=== PATIENT | male | born 1960 | race Caucasian/White ===

== ENCOUNTER 2019-09-02 15:03 | Inpatient (IN) | payer BC ==
[~2019-09-02] VITALS: Ht 160 cm; Wt 69.1 kg
[~2019-09-02 15:03] MED LIST: ASPIR 8181 MG PO; CELEBREX200 MG PO; CYMBALTA30 MG PO; DIOVAN160 MG PO; HYDROCODON-ACE1 EA12 PO; LEVOTHYROXINE100 MCG PO; LORZONE750 MG PO; RANITIDINE HCL300 MG PO; [UNRECOGNIZED DRUG - REMARK]
[2019-09-02] MEDS ORDERED: SODIUM CHLORIDE 0.9% 1000ML 1,000 ML IV ONE ×2 (15:15→16:30)
[2019-09-02] MEDS ORDERED: THIAMINE HCL INJ 100 MG/ML 2ML VIAL IV ONE (15:15)
[2019-09-02 15:53] LABS: BASOPHILS % 0.2 % (0.0-1.0); EOSINOPHILS # (AUTO) 0.4 (0.0-0.4); HEMATOCRIT 38.8 % (38.2-49.6); HEMOGLOBIN 13.6 g/dL (14.0-18.0); LYMPHOCYTES # (AUTO) 1.7 (1.0-3.2); LYMPHOCYTES % 13.8 % (18.0-39.1); MEAN CORPUSCULAR HEMOGLOBIN 33.6 pg (28-32); MEAN CORPUSCULAR HGB CONC 35.1 g/dL (31-35); MEAN CORPUSCULAR VOLUME 95.8 fL (81-99); MONOCYTES # (AUTO) 1.3 (0.2-0.8); MONOCYTES % 10.3 % (4.4-11.3); NEUTROPHILS # (AUTO) 8.7 (2.1-6.9); NEUTROPHILS % 72.1 % (38.7-80.0); PLATELET COUNT 540 x10e3/uL (140-360); RED BLOOD COUNT 4.05 x10e6/uL (4.3-5.7); RED CELL DISTRIBUTION WIDTH 12.7 % (11.7-14.4)
[2019-09-02 15:55] LABS: CLARITY,URINE CLEAR (CLEAR); COLOR,URINE YELLOW (YELLOW); KETONES,URINE NEGATIVE (NEGATIVE); LEUKOCYTE ESTERASE ,URINE NEGATIVE (NEGATIVE); NITRITE,URINE NEGATIVE (NEGATIVE); PROTEIN,URINE DIPSTICK 2+ (NEGATIVE)
[2019-09-02 15:56] LABS: BILIRUBIN,URINE 1+ (NEGATIVE); URINE UROBILINOGEN 0.2 mg/dL (0.2 - 1)
[2019-09-02 15:59] LABS: AMPHETAMINES SCREEN,URINE NEGATIVE (NEGATIVE); BENZODIAZEPINES SCREEN,URINE POSITIVE (NEGATIVE); PHENCYCLIDINE SCREEN,URINE NEGATIVE (NEGATIVE)
[2019-09-02 16:07] LABS: AMORPHOUS SEDIMENT,URINE MODERATE (FEW); BACTERIA,URINE MODERATE /HPF; EPITHELIAL CELLS,URINE FEW /LPF; WBC,URINE (MAN) 0-5 /HPF (0-5)
[2019-09-02 16:14] LABS: ALBUMIN 2.8 g/dL (3.5-5.0); ALBUMIN/GLOBULIN RATIO 0.6 (0.8-2.0); ANION GAP 12.3 mmol/L (8-16); CREATININE, SERUM 2.46 mg/dL (0.72-1.25); MAGNESIUM 1.8 MG/DL (1.3-2.1); PHOSPHORUS 2.9 MG/DL (2.3-4.7); POTASSIUM 4.3 mmol/L (3.5-5.1)
[2019-09-02 16:22] LABS: CALCIUM 16.7 mg/dL (8.4-10.2)
[2019-09-02] MEDS ORDERED: NALOXONE HCL INJ 0.4 MG/ML AMP IV ONE (16:30)
[2019-09-02 16:34] LABS: THYROID STIMULATING HORMONE 4.851 uIU/mL (0.350-4.940)
[2019-09-02] MEDS: SODIUM CHLORIDE 0.9% 1000ML 1,000 ML IV SCH (16:42)
[2019-09-02] MEDS ORDERED: SODIUM CHLORIDE FLUSH 10 ML SYR INJ PRN (16:45)
[2019-09-02] MEDS ORDERED: FUROSEMIDE INJ 10 MG/ML 4 ML VIAL IV ONE (17:00)
--- NOTE | 2019-09-02 17:01 | Diagnostic Imaging Report ---
EXAMINATION: ABDOMEN ACUTE SERIES W/PA CXR INDICATION: Shortness of breath, cough COMPARISON: None FINDINGS: LINES/TUBES:EKG leads overlie the chest. LUNGS:The lungs are moderately inflated. There is perihilar fullness and indistinctness of the pulmonary vasculature. Bilateral patchy peripheral airspace opacities. PLEURA:No pleural effusion or pneumothorax. MEDIASTINUM:The cardiomediastinal silhouette appears normal in size and shape. BONES/SOFT TISSUES:No acute osseous injury. ABDOMEN:Nonobstructive bowel gas pattern. No free air. No acute osseous injury. Atherosclerotic arterial calcifications. IMPRESSION: Pulmonary interstitial edema. Bilateral peripheral patchy airspace opacities left greater than right may represent superimposed infection. Signed by: Johana Christopher MD on 09/02/2019 4:58 PM
--- OUTSIDE RECORDS SUMMARY | 2019-09-02 17:02 | XMS REPORT ---
Author Author [facility] Address Unknown Phone Unavailable Care Team Providers Care Biology Intern Name Role Phone Unavailable Unavailable Problems This patient has no known problems. Allergies, Adverse Reactions, Alerts This patient has no known allergies or adverse reactions. Medications This patient has no known medications. Encounters Start Date/Time End Date/Time Encounter Type Admission Type Attending [facility] Facility Care Department Encounter ID 2019-08-30 11:19:00 2019-08-30 11:19:00 Emergency E [id number] 2019-01-31 11:37:00 2019-01-31 11:37:00 Outpatient [id number] 2018-12-07 12:37:00 2018-12-07 12:37:00 Outpatient [id number]
[2019-09-02] MEDS ORDERED: CLOPIDOGREL75 MG PO (17:19)
[2019-09-02] MEDS ORDERED: ONDANSETRON HCL INJ 2MG/ML 2ML 2 MG/ML VIAL IV STA (17:26)
[2019-09-02 18:44] VITALS: BP 140/86
--- NOTE | 2019-09-02 18:44 | NUR ---
PATIENT TRANSFERRED TO BED, A&O X3, RT AC IV 20G NS RUNNING TO GRAVITY. VITALS ARE 96.3 ORAL, 140/86, 93, 99% ROOM AIR, RR 18. CALL LIGHT WITHIN REACH, BED LOW AND LOCKED, SIDE RAILS UPX2.
--- NOTE | 2019-09-02 19:12 | NUR ---
Bedside shift report given to oncoming nurse. Patient is resting in bed. No acute distress noted. Call light within reach. Bed in the lowest position.
--- NOTE | 2019-09-02 19:15 | NUR ---
Patient received awake, alert, crying in pain. patient states, "I need my pain medication." patient c/o chronic back pain 03/14. patient was overly sedated in the emergency room and narcan was give. admission assessment/history obtained. patient unsteady on his feet. call robledo placed within reach and bed alarm placed for safety. patient instructed to call for assistance when needed.
[2019-09-02 19:56] VITALS: BP 140/86
[2019-09-02 21:29] VITALS: BP 140/86
[2019-09-03] VITALS (8 sets, daily range): BP systolic 103–116; BP diastolic 57–67
[2019-09-03] MEDS: SODIUM CHLORIDE 0.9% 1000ML 1,000 ML IV SCH ×2 (05:58→16:42)
--- NOTE | 2019-09-03 08:42 | NUR ---
The pt. is in bed asleep and without comp. Continuous iv fluids infusing.
[2019-09-03] MEDS ORDERED: CALCITONIN SALMON 400 IU/2ML VIAL SC ONE (09:00)
--- NOTE | 2019-09-03 09:30 | NUR ---
Dr. Wanda England visited post notification of elevated calcium.
--- NOTE | 2019-09-03 11:12 | NUR ---
A call was placed to Dr. England to notify of GFR results and that the CT scan will not be done today. He ordered continued iv fluids ,ct scan 09/03 and repeat bmp in am.
--- NOTE | 2019-09-03 12:36 | NUR ---
ASSESSMENT: Spiritual distress Pt confused. Pt's asks, "do I have cancer? I must be confused." Pt concerned about needing "pain medication." Intervention: Provided hospitality and information about how to contact conversion worker, if needed. Outcome: No need to follow at this time. TUTU HERNANDEZ Manager [facility] O: [phone]
--- NOTE | 2019-09-03 18:53 | NUR ---
patient received awake, alert, lying quietly in bed. patient c/o pain 03/14. Call placed to re:pain. ivf continue to infuse without difficulty. pm assessment complete. call robledo placed within reach. patient instructed to call for assistance when needed.
[2019-09-03] MEDS ORDERED: ACETAMINOPHEN 1000 MG/100 ML IV PRN (22:15)
[2019-09-04] VITALS: BP 95/67
[2019-09-04 04:00] VITALS: BP 108/77
--- NOTE | 2019-09-04 05:00 | NUR ---
patient oob to shower with assistance. patient for egd today. patient to remain npo for egd. patient verbalizes understanding of this.
[2019-09-04] MEDS: SODIUM CHLORIDE 0.9% 1000ML 1,000 ML IV SCH ×2 (05:45→16:42)
--- NOTE | 2019-09-04 06:00 | NUR ---
consent obtained for egd at this time and placed on patients chart.
[2019-09-04 06:17] LABS: BASOPHILS % 0.2 % (0.0-1.0); EOSINOPHILS # (AUTO) 0.2 (0.0-0.4); HEMATOCRIT 38.4 % (38.2-49.6); HEMOGLOBIN 13.6 g/dL (14.0-18.0); LYMPHOCYTES # (AUTO) 2.1 (1.0-3.2); LYMPHOCYTES % 13.7 % (18.0-39.1); MEAN CORPUSCULAR HEMOGLOBIN 33.9 pg (28-32); MEAN CORPUSCULAR HGB CONC 35.4 g/dL (31-35); MEAN CORPUSCULAR VOLUME 95.8 fL (81-99); MONOCYTES # (AUTO) 1.4 (0.2-0.8); MONOCYTES % 9.4 % (4.4-11.3); NEUTROPHILS # (AUTO) 11.5 (2.1-6.9); NEUTROPHILS % 74.9 % (38.7-80.0); PLATELET COUNT 549 x10e3/uL (140-360); RED BLOOD COUNT 4.01 x10e6/uL (4.3-5.7); RED CELL DISTRIBUTION WIDTH 12.9 % (11.7-14.4)
--- NOTE | 2019-09-04 06:30 | NUR ---
am calcium 15.3 call placed to re: calcium results. awaiting return call.
[2019-09-04 06:37] LABS: ANION GAP 14.6 mmol/L (8-16); CREATININE, SERUM 1.74 mg/dL (0.72-1.25); POTASSIUM 3.6 mmol/L (3.5-5.1)
[2019-09-04 06:39] LABS: CALCIUM 15.3 mg/dL (8.4-10.2)
[2019-09-04 08:05] VITALS: BP 114/72
[2019-09-04] MEDS ORDERED: IOPAMIDOL 370 MG/ML 200 ML INFUS..BTL INJ ONE (08:30)
[2019-09-04] MEDS ORDERED: SODIUM CHLORIDE 0.9% 50ML 50 ML ONE (08:30)
--- NOTE | 2019-09-04 08:41 | NUR ---
PT DOWN FOR CT VIA WC.
--- NOTE | 2019-09-04 08:51 | NUR ---
PT BACK IN ROOM FROM CT
--- NOTE | 2019-09-04 09:25 | NUR ---
PT TO EGD VIA WC.
--- NOTE | 2019-09-04 10:00 | Diagnostic Imaging Report ---
CT of the chest, with contrast. History: Hypercalcemia. Comparison: Chest radiograph from 09/01/2018. Technique: Multidetector CT scanning of the chest was performed from the level of the apices to the upper abdomen after intravenous administration of contrast. Coronal and sagittal multiplanar reformations were obtained. RADIATION DOSE: Total DLP: 484.74 mGy*cm Dose modulation, iterative reconstruction, and/or weight based adjustment of the mA/kV was utilized to reduce the radiation dose to as low as reasonably achievable. FINDINGS: Hypodense nodules are noted within the thyroid measuring up to 1.5 cm on the right. Recommend further nonemergent evaluation with dedicated thyroid ultrasound examination. The thoracic aorta is normal in course and caliber with atherosclerotic calcifications within its course and branch vessels including the coronary arteries. The heart is not enlarged. There is no abnormal pericardial fluid present. There is left hilar adenopathy measuring up to 1.4 x 1.2 cm (axial image 52). Additionally, there are soft tissue nodules identified along the anterior chest wall and subdiaphragmatic fat concerning for enlarged lymph nodes. A nodular soft tissue lesion adjacent to the right internal mammary artery measures 0.9 x 1.6 cm (axial image 56). Probable sebaceous cysts are noted within the posterior chest wall. The trachea is patent. There is a linear opacity identified within the right mainstem bronchus which may reflect retained secretions. The remaining proximal airways are patent. Examination the lungs demonstrates innumerable groundglass and nodular opacities with interlobular septal thickening. A nodule within the paramediastinal right upper lobe measures 1.8 x 1.6 cm (axial image 56). A nodular, masslike opacity within the right lower lobe measures 1.9 x 3.0 cm (axial image 86). A nodule within the left upper lobe measures 0.9 x 1.3 cm (axial image 41). A nodule within the medial left lower lobe measures 1.9 x 2.0 cm (axial image 87). There is a trace right and small left pleural effusion present with associated basilar atelectasis. There is no evidence for lobar consolidation or pneumothorax. There is nonspecific mild wall thickening of the esophagus. Innumerable hypodense liver lesions identified within the partially imaged liver. A lesion within the right hepatic lobe measures approximately 3.2 x 2.8 cm. A trace amount of perihepatic ascites is noted. There is partially visualized extensive retroperitoneal lymphadenopathy with soft tissue noted encasing the celiac axis. This measures up to 6.9 x 6.7 cm (axial image 118). There is likely nodular thickening of the partially visualized left adrenal gland. There is a destructive lesion identified within the posterior lateral aspect of the right second rib with soft tissue component (axial image 19). There is no evidence for acute fracture. IMPRESSION: Findings concerning for metastatic disease including innumerable pulmonary nodules, partially visualized hepatic lesions, left hilar lymphadenopathy, extensive partially visualized retroperitoneal lymphadenopathy, and destructive osseous lesion within the right second rib. Recommend further dedicated evaluation of the abdomen and pelvis. Trace right and small left pleural effusion. Trace ascites. Signed by: Dr. Enmanuel Benton MD on 09/04/2019 9:56 AM
--- NOTE | 2019-09-04 11:04 | NUR ---
PT BACK FROM PROCEDURE. ABLE TO STAND AND GET INTO BED WITH ASSISTANCE. NO COMPLAINTS OF PAIN AT THIS TIME. BED ALARM ACTIVATED.
--- NOTE | 2019-09-04 11:13 | Operative Report ---
DATE OF PROCEDURE: 09/02/2019 SURGEON: Eric England MD INDICATIONS FOR EGD: Upper abdominal pain, nausea, and vomiting. MEDICATIONS: The patient was done under MAC, please see anesthesiologist's note. PROCEDURE IN DETAIL: With the patient in left lateral decubitus position, a flexible fiberoptic Olympus gastroscope was introduced into the esophagus under direct visualization without any difficulty. A serpiginous ulcer was noted in the distal esophagus. An additional ulcer was also noted approximately 8 mm in size. The scope was then advanced with ease into the stomach traversing approximately 3 cm hiatal hernia. Approximately 1.5 cm ulcer was noted in the hiatal hernia sac and that was biopsied. Mucosa overlying the antrum and the body revealed some patchy erythema and [id number] edema. Biopsies were obtained and sent to stain for H pylori. An approximately 1 cm ulcer was noted in the antrum along the anterior wall without active bleeding and/or stigmata of recent hemorrhage and that was biopsied. The pylorus was of normal contour and shape and was intubated with ease and the scope was advanced all the way to the second portion of the duodenum. The scope was then withdrawn slowly and several ulcers up to 8 mm in size were noted in the duodenal bulb and proximal second portion without active bleeding or stigmata of recent hemorrhage. The scope was then withdrawn back into the stomach and retroflexed and previously described hiatal hernia was also noted in the retroflexed position. The scope was then straightened out and it was subsequently withdrawn. The patient tolerated the procedure well. IMPRESSION: 1. Ulcerated distal esophagus. 2. A 3 cm hiatal hernia. 3. Approximately 1.5 cm ulcer, hiatal hernia sac, biopsied. 4. Gastritis, biopsied, biopsies sent to stain for H pylori. 5. Approximately 1 cm ulcer, antrum, posterior wall without active bleeding or stigmata of recent hemorrhage, biopsied. 6. Several duodenal ulcers with the largest approximately 8 mm in the duodenal bulb at the proximal second portion. No active bleeding or stigmata or recent hemorrhage were noted. PLAN: Follow up histology. Continue PPI therapy. Initiate full liquid diet. Eric England MD [facility]/MODL /[id number] cc: Jorge England MD
--- NOTE | 2019-09-04 12:00 | NUR ---
DR. Wanda BRYAN TO SEE PT. NEW ORDERS RECEIVED.
[2019-09-04 15:41] VITALS: BP 126/68
--- NOTE | 2019-09-04 16:30 | NUR ---
DR AKHTAR TO SEE PT
[2019-09-04] MEDS ORDERED: PAMIDRONATE DISODIUM 90 MG in SODIUM CHLORIDE 0.9% 1000ML 1,000 ML IV ONE (17:30)
--- NOTE | 2019-09-04 17:43 | NUR ---
Nutrition Intervention Note RD Recommendation(s) for Physician: - When feasible, ADAT to goal GI Soft - Recommend Ensure Enlive TID when diet advanced - Recommend thiamine and folic acid supplementation 2/2 ETOH hx Pt meets criteria for moderate protein calorie malnutrition Plan of Care: RD following, monitoring for tolerance and adequacy Nutrition reason for involvement: Nutrition Risk Trigger RD Assessment 09/03: 59 YOM admitted for hypercalcemia, penitentiary use of opiates. Pt seen today per MST screen. Pt very groggy at time of visit, able to obtain limited hx. Pt reports wt loss, states that he weighed 160# "weeks ago". Pt reports poor appetite. Pt s/p EGD this am, pt with multiple ulcers per report. Per chart pt with hx of ongoing ETOH use. Chart reviewed. Will continue to monitor. Principal Problems/Diagnoses: hypercalcemia, penitentiary opiate use PMH: HTN, ETOH abuse, TIA, chronic depression, anxiety, gastric ulcers GI: LBM 09/03 x4 Skin: intact Labs: 09/03: Na 137, k 3.6, BUN 53, Cr 1.74, Gluc 107, Ca 15.3 Meds: syntroid, zofran Ht: 63 in Wt: 138 lb BMI: 24.4 kg/m2 IBW: 136 lb Malnutrition Evaluation (09/04/19) The patient meets criteria for MODERATE protein-calorie malnutrition. Energy intake: <75% of estimated energy requirements for >7 days Weight loss: >5% in 1 month (Acute) Fat loss: Mild, slightly dark circles around eyes Muscle loss: Mild, clavicle visible Supporting Evidence: Fluid accumulation: none observed Functional Status: not assessed Nutrition Prescription (Diet Order): NPO Estimated Nutritional Needs: 1110-2937 calories/day (25-30 kcal/kg CBW) 63-94 g protein/day (1-1.5 g pro/kg CBW) Diet Adequacy: Not meeting calorie needs, Not meeting protein needs Diet Tolerance: tolerance pending Diet Education Needs Assessment: Diet education not indicated, patient on temporary/transition diet. Nutrition Care Level: Mod Nutrition Diagnosis: Inadequate energy and protein intake related to Goal: Patient will meet 75-100% of estimated needs by follow up Progress: N/A Interventions: -Fluid, fiber modified diet, Commercial beverage, Prescription medications, Recommended Modifications, Multivitamin/mineral supplement therapy, Collaboration with other providers Monitoring/Evaluation: -Total energy intake, Total protein intake, Prescription medication, Modified diet, Liquid supplement, Weight change Signed: Erica Espinosa RD, STACY, CNSC
[2019-09-04] MEDS ORDERED: PROPOFOL IV EMULSION 10 MG/ML 20 ML VIAL ONE (17:50)
--- NOTE | 2019-09-04 18:47 | NUR ---
report given to oncoming shift
--- NOTE | 2019-09-04 19:38 | NUR ---
Received bedside report from day nurse. Patient awake and resting in bed, no s/s of distress at this time. Bed locked and in low position, alarm on, call light placed within reach. All safety measures in place. Will continue to monitor.
[2019-09-04] MEDS ORDERED: MIDAZOLAM HCL 2 MG/2 ML VIAL ONE (19:47)
[2019-09-04] MEDS ORDERED: FENTANYL CITRATE/PF 100MCG/2 ML INJ ONE (19:47)
[2019-09-04 20:00] VITALS: BP 108/69
[2019-09-04 20:24] VITALS: BP 108/69
[2019-09-05] VITALS (9 sets, daily range): BP systolic 100–137; BP diastolic 64–79
[2019-09-05] MEDS: SODIUM CHLORIDE 0.9% 1000ML 1,000 ML IV SCH ×5 (00:42→19:19)
--- NOTE | 2019-09-05 00:56 | NUR ---
Dr. Elissa England here to see patient. Received orders to advance patient to GI soft diet.
[2019-09-05 05:55] LABS: BASOPHILS % 0.3 % (0.0-1.0); EOSINOPHILS # (AUTO) 0.5 (0.0-0.4); EOSINOPHILS % 3.3 % (0.0-6.0); HEMATOCRIT 32.9 % (38.2-49.6); HEMOGLOBIN 11.4 g/dL (14.0-18.0); LYMPHOCYTES # (AUTO) 1.7 (1.0-3.2); LYMPHOCYTES % 11.8 % (18.0-39.1); MEAN CORPUSCULAR HEMOGLOBIN 33.1 pg (28-32); MEAN CORPUSCULAR HGB CONC 34.7 g/dL (31-35); MEAN CORPUSCULAR VOLUME 95.6 fL (81-99); MONOCYTES # (AUTO) 1.5 (0.2-0.8); MONOCYTES % 10.2 % (4.4-11.3); NEUTROPHILS # (AUTO) 10.7 (2.1-6.9); NEUTROPHILS % 72.4 % (38.7-80.0); PLATELET COUNT 426 x10e3/uL (140-360); RED BLOOD COUNT 3.44 x10e6/uL (4.3-5.7); RED CELL DISTRIBUTION WIDTH 12.9 % (11.7-14.4)
[2019-09-05 06:03] LABS: CHLORIDE 107 mmol/L (98-107); POTASSIUM 3.2 mmol/L (3.5-5.1); SODIUM 136 mmol/L (136-145)
[2019-09-05] MEDS: LEVOTHYROXINE SODIUM 100 MCG TAB PO SCH (06:16)
[2019-09-05 06:17] LABS: ANION GAP 11.2 mmol/L (8-16); BLOOD UREA NITROGEN 34 mg/dL (7-26); BUN/CREATININE RATIO 31 (6-25); CALCIUM 12.3 mg/dL (8.4-10.2); CARBON DIOXIDE 21 mmol/L (22-29); CREATININE, SERUM 1.11 mg/dL (0.72-1.25); EST GLOMERULAR FILTRATION RATE > 60 ML/MIN (60-); GLUCOSE 108 mg/dL (74-118)
--- NOTE | 2019-09-05 07:13 | NUR ---
Bedside report given to day nurse. Patient awake and resting in bed, no s/s of distress at this time. All safety measures in place.
[2019-09-05] MEDS: VALSARTAN 160 MG TAB PO SCH (08:48)
[2019-09-05] MEDS: DULOXETINE HCL 30 MG DELAYED RELEASE PO SCH (08:48)
[2019-09-05] MEDS ORDERED: SODIUM CHLORIDE 0.9% 50ML 50 ML ONE (10:30)
[2019-09-05] MEDS ORDERED: IOPAMIDOL 370 MG/ML 200 ML INFUS..BTL INJ ONE (10:30)
--- NOTE | 2019-09-05 11:03 | Diagnostic Imaging Report ---
CT of the abdomen and pelvis, with contrast. History: Lymphadenopathy. Comparison: CT chest from 09/04/2019. Technique: Multidetector CT scanning of the abdomen and pelvis was performed from the level of the lung bases to the inferior pubic rami after intravenous administration of contrast. Coronal and sagittal multiplanar reformations were obtained. RADIATION DOSE: Total DLP: 309.53 mGy*cm Dose modulation, iterative reconstruction, and/or weight based adjustment of the mA/kV was utilized to reduce the radiation dose to as low as reasonably achievable. FINDINGS: Please refer to the recent prior CT chest examination for evaluation of the intrathoracic contents. There is a small amount of scattered abdominopelvic ascites. There are multiple hypodense masses identified involving both lobes of the liver. A mass within the inferior right hepatic lobe measures up to 3.3 cm. There is no biliary ductal dilatation. A small hiatal hernia is present. There is moderate fluid distention of the stomach which is otherwise unremarkable. The spleen demonstrates no significant abnormalities. There is a 7.0 x 6.8 cm heterogeneous mass identified within the upper abdomen encasing the celiac axis and SMA which abuts and likely arises from the pancreatic body (axial image 27). The pancreatic tail appears atrophic. There are multiple enlarged retroperitoneal and mesenteric lymph nodes present. An enlarged lymph node posterior to the IVC measures 1.9 x 2.8 cm (axial image 36). There is nodularity of the omentum identified adjacent to the spleen (axial image 23). The kidneys are normal in location. The left kidney is decreased in size and contains multiple areas of cortical scarring. There are bilateral renal cysts measuring up to 3.4 cm on the right. There is no evidence for hydronephrosis. No ureteral dilatation or stone is appreciated. The partially distended urinary bladder is grossly unremarkable. The prostate demonstrate no significant abnormalities. The abdominal aorta is normal in caliber with atherosclerotic calcifications within its course and branch vessels. The IVC is normal in caliber. Please note that evaluation the bowel is limited without the use of enteric contrast material. The visualized small and large bowel demonstrate no evidence of obstruction or inflammation. Diverticula are noted within the sigmoid colon without evidence for acute diverticulitis. There is no intraperitoneal free air. There is a severe, irregular appearing compression deformity of the L1 vertebral body with approximately 80% height loss and approximately 4 mm of retropulsion. There is a moderate compression deformity the L4 vertebral body and mild compression deformity of the L5 vertebral body. The extraperitoneal soft tissues are unremarkable. IMPRESSION: Findings worrisome for pancreatic malignancy with large heterogeneous mass within the upper abdomen abutting likely arising from the pancreatic body with encasement the celiac artery and SMA. There is evidence of metastatic disease with multiple hepatic masses, mesenteric and retroperitoneal lymphadenopathy, omental nodularity, small volume of ascites, as well as pulmonary nodules as noted on the recent prior CT chest examination. Likely pathologic compression deformities noted within the lumbar spine as detailed above. Signed by: Dr. Enmanuel Benton MD on 09/05/2019 11:00 AM
[2019-09-05] MEDS ORDERED: PAMIDRONATE DISODIUM 90 MG in SODIUM CHLORIDE 0.9% 1000ML 1,000 ML IV ONE (18:30)
--- NOTE | 2019-09-05 19:29 | NUR ---
pt c/o lower back pain, has no ordered meds. paged Dr. burton and handed off to night nurse.
--- NOTE | 2019-09-05 19:56 | NUR ---
Received return call from Dr. Elma England. Received orders for Dilaudid 2 mg IV Q4H PRN.
[2019-09-05] MEDS: HYDROMORPHONE 2MG/ML 2 MG/ML ML IV PRN (20:36)
[2019-09-05] MEDS: ONDANSETRON HCL INJ 2MG/ML 2ML 2 MG/ML VIAL IV PRN (20:37)
--- NOTE | 2019-09-05 21:22 | NUR ---
ENTRY FOR 09/05/19; 0635 RECEIVED REPORT; PT. A & 0 X 3; PT IN STABLE CONDITION; PT. REPORTS SEVERE BACK PAIN LEVEL 10 ON NUMERIC PAIN SCALE; DR. Elma BRYAN CALLED; WAITING FOR RETURN CALL
[2019-09-06] VITALS (8 sets, daily range): BP systolic 93–131; BP diastolic 64–78
--- NOTE | 2019-09-06 03:25 | NUR ---
DR. Elma BRYAN CALL BACK EARLIER; PT. WAS GIVEN DILAUDID 2MG VIA PICC AND ZOFRAN AT 1900 PT. HAS BEEN RESTING COMFORTABLY SINCE THIS TIME.
[2019-09-06] MEDS: LEVOTHYROXINE SODIUM 100 MCG TAB PO SCH (04:49)
--- NOTE | 2019-09-06 06:52 | NUR ---
PT. REMAINS IN STABLE CONDITION WITHOUT COMPLAINT OF PAIN OR NAUSEA; REPORT GIVEN TO MATEO HERNANDEZ RN
--- NOTE | 2019-09-06 06:58 | NUR ---
Bedside report given to day nurse. Patient resting in bed, respirations even and unlabored, no s/s of distress at this time. All safety measures in place.
[2019-09-06] MEDS: ONDANSETRON HCL INJ 2MG/ML 2ML 2 MG/ML VIAL IV PRN ×2 (08:00→18:25)
[2019-09-06] MEDS: SODIUM CHLORIDE 0.9% 1000ML 1,000 ML IV SCH ×2 (08:01→16:42)
[2019-09-06] MEDS: DULOXETINE HCL 30 MG DELAYED RELEASE PO SCH (09:00)
[2019-09-06] MEDS: VALSARTAN 160 MG TAB PO SCH (09:00)
[2019-09-06 10:58] LABS: INR 1.08; PROTHROMBIN TIME 14.7 seconds (11.9-14.5)
[2019-09-06 10:59] LABS: PARTIAL THROMBOPLASTIN TIME 26.5 seconds (23.8-35.5)
[2019-09-06] MEDS ORDERED: POTASSIUM CHLORIDE 20MEQ/100ML 200 ML IV ONE (12:00)
[2019-09-06] MEDS ORDERED: MIDAZOLAM HCL 2 MG/2 ML VIAL ONE (12:17)
[2019-09-06] MEDS ORDERED: FENTANYL CITRATE/PF 100MCG/2 ML INJ ONE (12:17)
--- NOTE | 2019-09-06 14:03 | Diagnostic Imaging Report ---
PROCEDURE: Ultrasound-guided liver mass biopsy Procedural Personnel Attending physician(s): Johana Christopher MD Fellow physician(s): None Resident physician(s): None Advanced practice provider(s): None Pre-procedure diagnosis: Liver metastasis Post-procedure diagnosis: Same Indication: Multiple liver metastases, histopathological diagnosis Previous biopsy of same target (QCDR): No Additional clinical history: None Complications: No immediate complications. IMPRESSION: Ultrasound-guided biopsy of right liver mass. Plan: Specimen(s) sent for evaluation. PROCEDURE SUMMARY: - Percutaneous US-guided right liver mass biopsy - Additional procedure(s): None PROCEDURE DETAILS: Pre-procedure Reference imaging for biopsy target: CT abdomen pelvis 09/05/2019 Consent: Informed consent for the procedure including risks, benefits and alternatives was obtained and time-out was performed prior to the procedure. Preparation: The site was prepared and draped using maximal sterile barrier technique including cutaneous antisepsis. Anesthesia/sedation Level of anesthesia/sedation: Moderate sedation (conscious sedation) 1mg Versed, 50mcg Fentanyl Anesthesia/sedation administered by: Independent trained observer under attending supervision with continuous monitoring of the patient?s level of consciousness and physiologic status Total intra-service sedation time (minutes): 30 Imaging prior to biopsy The patient was positioned supine. Initial ultrasound was performed. Biopsy target: - Maximal diameter (cm): 3 - Location: Right liver Other findings: None Biopsy Local anesthesia was administered. Under US guidance, the biopsy needle was advanced to the target and biopsy was performed. Coaxial needle: 17 gauge Core needle biopsy device: Inside Warehouse Core needle size: 18 gauge Number of core specimens: 3 Needle removal The biopsy needle was removed and a sterile dressing was applied. Tract embolization: None Imaging following biopsy Immediate post-biopsy ultrasound was performed. Post-biopsy imaging findings: No hematoma Additional Details Additional description of procedure: None Equipment details: None Specimens removed: Biopsy samples as detailed above Estimated blood loss (mL): Less than 10 Standardized report: [id number] Attestation Signer name: Johana Christopher MD I attest that I was present for the entire procedure. I reviewed the stored images and agree with the report as written. Signed by: Johana Christopher MD on 09/06/2019 1:59 PM
[2019-09-06] MEDS: HYDROMORPHONE 2MG/ML 2 MG/ML ML IV PRN (18:25)
--- NOTE | 2019-09-06 20:50 | NUR ---
PATIENT RESTING IN BED BOTH EYES CLOSED, NO SIGNS OF DISTRESS NOTED. IV FLUIDS ARE RUNNING AT ORDERED RATE AND PATIENT VOICES NO PAIN AT THIS TIME. PATIENT RUNNING ON SECOND BAG OF POTASSIUM IV. BED IS IN LOWEST POSITION, BOTH SIDE RAILS ARE UP, CALL LIGHT IS WITHIN REACH, WILL CONTINUE TO MONITOR.
[2019-09-07] VITALS (8 sets, daily range): BP systolic 91–122; BP diastolic 65–82
[2019-09-07] MEDS: SODIUM CHLORIDE 0.9% 1000ML 1,000 ML IV SCH ×4 (02:16→22:35)
[2019-09-07] MEDS: HYDROMORPHONE 2MG/ML 2 MG/ML ML IV PRN ×2 (05:09→16:40)
[2019-09-07] MEDS: ONDANSETRON HCL INJ 2MG/ML 2ML 2 MG/ML VIAL IV PRN (05:09)
[2019-09-07] MEDS: LEVOTHYROXINE SODIUM 100 MCG TAB PO SCH (05:09)
[2019-09-07 06:31] LABS: ANION GAP 10.7 mmol/L (8-16); BLOOD UREA NITROGEN 28 mg/dL (7-26); BUN/CREATININE RATIO 26 (6-25); CALCIUM 9.4 mg/dL (8.4-10.2); CARBON DIOXIDE 15 mmol/L (22-29); CHLORIDE 111 mmol/L (98-107); CREATININE, SERUM 1.06 mg/dL (0.72-1.25); EST GLOMERULAR FILTRATION RATE > 60 ML/MIN (60-); GLUCOSE 108 mg/dL (74-118); POTASSIUM 3.7 mmol/L (3.5-5.1); SODIUM 133 mmol/L (136-145)
--- NOTE | 2019-09-07 07:00 | NUR ---
Received bedside shift report. Patient in stable condition,no s/s of distress. Bed alarm in place and working. Telemetry in place. bed in lowest position and locked. Call light within reach.
[2019-09-07] MEDS: DULOXETINE HCL 30 MG DELAYED RELEASE PO SCH (09:00)
--- NOTE | 2019-09-07 13:50 | Progress Note ---
DATE: Internal Medicine Progress Note SUBJECTIVE: The patient is complaining of diarrhea and nausea. PHYSICAL EXAMINATION: HEART: Showed regular rhythm. Normal S1 and S2 sound. LUNGS: Clear bilaterally. ABDOMEN: Soft. VITAL SIGNS: Blood pressure is 98/70, heart rate 83 per minute, respiratory rate 18 per minute, temperature 97.3, oxygen saturation 96%. LABORATORY DATA: We have CBC with white blood count 14.76, hemoglobin 11.4, hematocrit 32.9, platelet count 426,000. BMP; sodium 133, potassium 3.7, chloride 111, CO2 is 15, BUN 28, creatinine 1.06, glucose 108, calcium 9.4, carcinoembryonic antigen 17.7. Toxicology; positive for benzodiazepine and opiates. Immunology; IgG , IgA 355, IgM is 84. Liver biopsy has been done because of a liver mass. FINAL IMPRESSION: 1. Vomiting. 2. Acute diarrhea. 3. without bleeding. 4. Pancreatic cancer with metastases. 5. Hypercalcemia. PLAN OF TREATMENT: Oncology seeing him for the mass in the liver. Continue normal saline 125 mL an hour, Aredia 90 mg IV, only 1 time has been given, potassium 20 mEq has been given one time also, he is on Cymbalta 30 mg daily, Dilaudid 2 mg IV q.4 hours as needed, levothyroxine 100 mcg daily, and valsartan 160 mg daily. We are going to send stool for C difficile also because of diarrhea. We are going to put him on imodium 2 mg q.6 hours as needed for diarrhea. We are going to repeat a CBC and a BMP. Case has been discussed with nurses. Labs have been reviewed. Continuous Improvement Black Belt report has been reviewed. Time spent are 35 minutes. MD KAYLA Miranda/CHEN /[id number]
[2019-09-07 15:25] LABS: BASOPHILS % 0.1 % (0.0-1.0); EOSINOPHILS # (AUTO) 0.2 (0.0-0.4); EOSINOPHILS % 1.4 % (0.0-6.0); HEMATOCRIT 34.5 % (38.2-49.6); HEMOGLOBIN 11.1 g/dL (14.0-18.0); LYMPHOCYTES # (AUTO) 0.8 (1.0-3.2); LYMPHOCYTES % 4.9 % (18.0-39.1); MEAN CORPUSCULAR HEMOGLOBIN 32.8 pg (28-32); MEAN CORPUSCULAR HGB CONC 32.2 g/dL (31-35); MEAN CORPUSCULAR VOLUME 102.1 fL (81-99); MONOCYTES # (AUTO) 1.5 (0.2-0.8); MONOCYTES % 9.5 % (4.4-11.3); NEUTROPHILS # (AUTO) 13.3 (2.1-6.9); NEUTROPHILS % 83.3 % (38.7-80.0); PLATELET COUNT 299 x10e3/uL (140-360); RED BLOOD COUNT 3.38 x10e6/uL (4.3-5.7); RED CELL DISTRIBUTION WIDTH 13.5 % (11.7-14.4)
[2019-09-07 15:43] LABS: ALANINE AMINOTRANSFERASE 39 IU/L (0-55); ALBUMIN 2.1 g/dL (3.5-5.0); ALBUMIN/GLOBULIN RATIO 0.6 (0.8-2.0); ALKALINE PHOSPHATASE 293 IU/L (40-150); ANION GAP 10.9 mmol/L (8-16); BLOOD UREA NITROGEN 25 mg/dL (7-26); BUN/CREATININE RATIO 23 (6-25); CALCIUM 9.5 mg/dL (8.4-10.2); CARBON DIOXIDE 14 mmol/L (22-29); CHLORIDE 113 mmol/L (98-107); CREATININE, SERUM 1.08 mg/dL (0.72-1.25); EST GLOMERULAR FILTRATION RATE > 60 ML/MIN (60-); GLUCOSE 111 mg/dL (74-118); POTASSIUM 3.9 mmol/L (3.5-5.1); SODIUM 134 mmol/L (136-145)
--- NOTE | 2019-09-07 16:15 | NUR ---
Patient will benefit from a RW for gait safety upon D/C. Addendum: 09/07/19 at 2343 by Kye Lafleur PT Amended: Links added.
[2019-09-07] MEDS: VALSARTAN 160 MG TAB PO SCH (16:43)
--- NOTE | 2019-09-07 19:17 | NUR ---
PATIENT IS IN STABLE CONDITION WITH NO S/S OF RESPIRATORY DISTRESS. PATIENT RECENTLY RECEIVED PAIN MEDICATION. TELEMETRY APPLIED. IV FLUIDS INFUSING. CALL LIGHT IS WITHIN REACH, PATIENT INSTRUCTED TO CALL FOR ASSISTANCE NEEDED. BEDSIDE SHIFT REPORT GIVEN TO ONCOMING NURSE.
--- NOTE | 2019-09-07 20:30 | NUR ---
PATIENT RESTING IN STABLE CONDITION, NO SIGNS OF DISTRESS NOTED. IV FLUIDS ARE RUNNING AT ORDERED RATE AND PATIENT VOICES NO PAIN AT THIS TIME. PATIENT PROVIDED STOOL SAMPLE FOR TESTING, LOOSE STOOLS NOTED AND WILL BE MEDICATED ORDERED. BED IS IN LOWEST POSITION, BOTH SIDE RAILS ARE UP, CALL LIGHT IS WITHIN REACH, WILL CONTINUE TO MONITOR.
[2019-09-07] MEDS: LOPERAMIDE HCL 2 MG CAP PO PRN (23:49)
[2019-09-08] VITALS (7 sets, daily range): BP systolic 95–112; BP diastolic 55–70
[2019-09-08] MEDS: LEVOTHYROXINE SODIUM 100 MCG TAB PO SCH (06:25)
--- NOTE | 2019-09-08 07:00 | NUR ---
Received bedside shift report. Patient in stable condition,no s/s of distress. Bed alarm in place and working. Telemetry in place. Bed in lowest position and locked. Call light within reach. All personal items within reach.
[2019-09-08] MEDS: SODIUM CHLORIDE 0.9% 1000ML 1,000 ML IV SCH ×2 (07:02→17:38)
[2019-09-08] MEDS: VALSARTAN 160 MG TAB PO SCH (08:33)
[2019-09-08] MEDS: DULOXETINE HCL 30 MG DELAYED RELEASE PO SCH (08:33)
[2019-09-08] MEDS: LOPERAMIDE HCL 2 MG CAP PO PRN ×3 (10:23→20:38)
--- NOTE | 2019-09-08 12:54 | Progress Note ---
DATE: Internal Medicine Progress Note SUBJECTIVE: The patient is doing well except for diarrhea. OBJECTIVE: HEART: Showed regular rhythm. Normal S1 and S2 sound. LUNGS: Clear bilaterally. ABDOMEN: Soft. EXTREMITIES: Show no edema. VITAL SIGNS: Blood pressure is 112/59, temperature 97.2, heart rate 98 per minute, respiratory rate is 24 per minute, oxygen saturation 96%. LABORATORY DATA: White blood count is elevated at 15,960, hemoglobin 10.1, hematocrit 34.5, platelet count of 299,000 . On the BMP; sodium 134, potassium 3.9, chloride 113, CO2 of 14, BUN 25, creatinine 1.08, glucose 111, calcium 9.5, total bilirubin 0.3, AST 23, ALT 39, alkaline phosphatase 293, total protein 5.9, albumin 2.1, globulin 3.8, CEA 17.7. FINAL IMPRESSION: 1. Vomiting. 2. Acute diarrhea. 3. Gastric ulcer. 4. Duodenal ulcer. 5. Pancreatic cancer with metastasis. 6. Hypercalcemia. PLAN OF TREATMENT: Continue normal saline at 125 mL an hour, Cymbalta 30 mg daily, Dilaudid 2 mg IV q.4 hours as needed for severe pain, levothyroxine 100 mcg daily, Imodium 2 mg q.4 hours as needed for diarrhea, Zofran 4 mg IV q.4 hours as needed for nausea and vomiting, valsartan 160 mg daily. C diff toxin is negative. Case has been discussed with the patient. Railway Signal Technician reports have been reviewed. Prognosis is very poor. MD KAYLA Miranda/CHEN /[id number]
--- NOTE | 2019-09-08 17:05 | Progress Note ---
DATE: 09/08/2019 Mr. Mir is a 59-year-old male referred to me for a hypercalcemia. For detailed consult, please review my dictation. The patient is more alert today. Hemoglobin yesterday was 11.1 [place] [address], platelets 299,000. Chemistry is showing much improvement in his calcium to 9.3, total protein 5.9, albumin low at 2.9, globulin is high at 3.8. Liver biopsy has been done. I am awaiting the results of the liver biopsy. As dictated before, CEA is very high 17.7 pointing towards an epithelial cancer. Clinically, this is lung cancer until proven otherwise. MD CAMILLA Hemphill/CHEN /[id number]
--- NOTE | 2019-09-08 19:13 | NUR ---
Bedside shift report completed with oncoming nurse. Patient in stable condition, no s/s of distress noted. Telemetry applied. IV fluids infusing. Bed alarm in place and working. Bed in lowest position and locked. Call light within reach. All personal items within reach.
--- NOTE | 2019-09-08 20:35 | NUR ---
PATIENT RESTING IN STABLE CONDITION, NO SIGNS OF DISTRESS NOTED. IV FLUIDS ARE RUNNING AT ORDERED RATE AND PATIENT VOICES NO PAIN AT THIS TIME. PATIENT STILL VOICES THAT HE HAS LOOSE STOOLS. BED IS IN LOWEST POSITION, BOTH SIDE RAILS ARE UP, CALL LIGHT IS WITHIN REACH, WILL CONTINUE TO MONITOR.
[2019-09-09] VITALS (8 sets, daily range): BP systolic 91–124; BP diastolic 64–80
[2019-09-09] MEDS: SODIUM CHLORIDE 0.9% 1000ML 1,000 ML IV SCH ×3 (00:42→16:42)
[2019-09-09] MEDS: ONDANSETRON HCL INJ 2MG/ML 2ML 2 MG/ML VIAL IV PRN ×2 (00:45→13:52)
[2019-09-09] MEDS: HYDROMORPHONE 2MG/ML 2 MG/ML ML IV PRN ×2 (00:45→13:52)
[2019-09-09] MEDS: LEVOTHYROXINE SODIUM 100 MCG TAB PO SCH (06:37)
--- NOTE | 2019-09-09 07:00 | NUR ---
Received bedside shift report. Patient in stable condition,no s/s of distress. Sitting at bedside in chair. no complaints of pain. Telemetry in place. Bed in lowest position and locked. Call light within reach. All personal items within reach.
[2019-09-09] MEDS: DULOXETINE HCL 30 MG DELAYED RELEASE PO SCH (08:41)
[2019-09-09] MEDS ORDERED: GADOBENATE DIMEGLUMINE 1 ML IV ONE (09:02)
--- NOTE | 2019-09-09 09:12 | NUR ---
PATIENT OFF THE UNIT TO MRI- PATIENT IN STABLE CONDITION WITH NO S/S OF RESPIRATORY DISTRESS. TELEMETRY APPLIED.
--- NOTE | 2019-09-09 10:39 | Diagnostic Imaging Report ---
Examination: MRI BRAIN WITHOUT AND WITH CONTRAST History: Metastatic pancreatic cancer. Evaluate for brain metastases. Comparison studies: No direct comparison. Technique: Pre-contrast: Sagittal T2; axial T1, GRE or SWI, DWI, T2 FLAIR Post-contrast: axial, sagittal and coronal T1. Intravenous contrast: 14 mL MultiHance Findings: Limited exam due to motion artifact. Scalp: No abnormal signal. No masses. Bone marrow: Normal in signal intensity. Brain volume: Adequate for age. No volume loss. Ventricles: Normal in size and configuration. No hydrocephalus. Parenchyma: T2 hyperintense lesions are identified in the bilateral inferior putamen with the largest measuring 1.4 cm and along the inferior aspect of the right putamen. Patchy areas of 2/FLAIR signal abnormality identified in the omar, nonspecific. No masses, hemorrhage, or acute vascular insults. Extra-axial spaces: No lesion, fluid collection or hematoma. Enhancement: No abnormal enhancement. Suprasellar and sellar region: No abnormalities. Craniocervical junction: No abnormalities. The foramen magnum is patent. No Chiari malformations. Vessels: Normal flow-voids in the arteries and sinuses. Additional findings: Opacified left maxillary sinus. Partially visualized disc at the C4-C5. IMPRESSION: Despite limitation, no intracranial metastasis. Mild chronic microvascular ischemic change. Signed by: Dr. Jacquelin Cabrera M.D. on 09/09/2019 10:36 AM
[2019-09-09] MEDS: VALSARTAN 160 MG TAB PO SCH (13:53)
--- NOTE | 2019-09-09 15:54 | NUR ---
Nutrition Intervention Note RD Recommendation(s) for Physician: - Continue GI Soft diet - Recommend Ensure Enlive TID - Recommend thiamine and folic acid supplementation 2/2 ETOH hx Pt meets criteria for moderate protein calorie malnutrition Plan of Care: RD following, monitoring for tolerance and adequacy Reason for visit: follow up RD Assessment 09/08: Follow up. Pt reports tolerating diet, however states that dairy might be causing bloating and diarrhea- will note in health touch. Pt reports improved appetite and that he is getting enough to eat, noted fluctuating intake- pt states it's due to meal interruptions with testing and health care provider visits. Pt with no questions or concerns at time of visit. Chart reviewed. Will continue to monitor. 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 Pt seen today per MST screen. Pt very groggy at time of visit, able to obtain limited hx. Pt reports wt loss, states that he weighed 160# "weeks ago". Pt reports poor appetite. Pt s/p EGD this am, pt with multiple ulcers per report. Per chart pt with hx of ongoing ETOH use. Chart reviewed. Will continue to monitor. Principal Problems/Diagnoses: hypercalcemia, crossing supervisor opiate use PMH: HTN, ETOH abuse, TIA, chronic depression, anxiety, gastric ulcers GI: LBM 4/5 x 3 Skin: intact Labs: 09/06: Na 134, k 3.9, BUN 25, Cr 1.09, Gluc 111, 09/08: Ca 8.7 Meds: synthroid, zofran, dilaudid Ht: 63 in Wt: 138 lb BMI: 24.4 kg/m2 IBW: 136 lb Malnutrition Evaluation (09/04/19) The patient meets criteria for MODERATE protein-calorie malnutrition. Energy intake: <75% of estimated energy requirements for >7 days Weight loss: >5% in 1 month (Acute) Fat loss: Mild, slightly dark circles around eyes Muscle loss: Mild, clavicle visible Supporting Evidence: Fluid accumulation: none observed Functional Status: not assessed Nutrition Prescription (Diet Order): GI Soft Estimated Nutritional Needs: 2856-1325 calories/day (25-30 kcal/kg CBW) 63-94 g protein/day (1-1.5 g pro/kg CBW) Diet Adequacy: Not meeting calorie needs, Not meeting protein needs Diet Tolerance: tolerating po Diet Education Needs Assessment: Diet education not indicated, patient on temporary/transition diet. Nutrition Care Level: Mod Nutrition Diagnosis: Inadequate energy and protein intake related to current medical conditions as evidenced by significant wt loss. Goal: Patient will meet 75-100% of estimated needs by follow up Progress: progressing Interventions: -Fluid, fiber modified diet, Commercial beverage, Prescription medications, Recommended Modifications, Multivitamin/mineral supplement therapy, Collaboration with other providers Monitoring/Evaluation: -Total energy intake, Total protein intake, Prescription medication, Modified diet, Liquid supplement, Weight change Signed: Erica Espinosa RD, LD, CNSC
--- NOTE | 2019-09-09 18:26 | NUR ---
DR. BRYAN HAS BEEN INFORMED THAT THE PATIENT WAS ATTEMPTING TO TAKE HIS OWN HOME MEDICATION (OF NORCO) WITNESSED BY THE RN. TWO PRESCRIPTION BOTTLES WERE CONFISCATED BY RN AND GIVEN TO THE PHARMACY TO HOLD UNTIL THE PATIENT DISCHARGES. RN INFORMED DR. BRYAN THE PATIENT IS ONLY RECEIVING IV DILAUDID 2MG Q4H ONCE DAILY BUT AT TIMES BECOMES LETHARGIC. PATIENT DENIES TAKING ANY OTHER PAIN MEDICATION AFTER THE CONFISCATION OF THE NORCO. NEW ORDER RECEIVED BY DR. BRYAN TO DECREASE DILAUDID TO 1MG Q4H.
--- NOTE | 2019-09-09 19:00 | NUR ---
Received patient awake, not in distress, call light within easy reach, advised to call for assistance anytime as needed. Will continue to monitor
[2019-09-09] MEDS ORDERED: HYDROMORPHONE 2MG/ML 2 MG/ML ML IV PRN (20:00)
[2019-09-10] VITALS (7 sets, daily range): BP systolic 87–109; BP diastolic 67–82
[2019-09-10] MEDS: SODIUM CHLORIDE 0.9% 1000ML 1,000 ML IV SCH ×4 (00:42→21:15)
[2019-09-10] MEDS: LEVOTHYROXINE SODIUM 100 MCG TAB PO SCH (05:20)
--- NOTE | 2019-09-10 07:15 | NUR ---
bedside rounds done with dayshift RN, call light within easy reach
[2019-09-10] MEDS: DULOXETINE HCL 30 MG DELAYED RELEASE PO SCH (07:53)
[2019-09-10] MEDS: VALSARTAN 160 MG TAB PO SCH (07:55)
--- NOTE | 2019-09-10 08:38 | NUR ---
PROVIDED WALKER ORDERED, OBTAINED ALL SIGNATURES AND WILL FILE IN PACU FOR COMPLETION OF PROCESSING.
[2019-09-10] MEDS: HYDROMORPHONE 1MG/1ML INJ IV PRN ×2 (09:02→21:10)
--- NOTE | 2019-09-10 10:25 | Progress Note ---
DATE: 09/10/2019 Mr. Chico Mir is a 59-year-old male, who was referred to me for evaluation of liver metastases. The patient did have a liver biopsy. However, the results are still pending. The patient is hematologically stable with a hemoglobin of 11.1, hematocrit of 34.5, white count 15,960, and platelets of 299,000, dated 09/07/2019. Hypercalcemia, which he has resolved with a calcium level of 8.7, however, this was more than 16 before. Total protein is to remain low at 5.9, albumin remains low at 2.1 because of massive liver metastases. High CEA of 17.7 reflects an epithelial tumor, perhaps lung cancer as I evaluated before and awaiting the results of the biopsy for any proper treatment. MD CAMILLA Hemphill/CHEN /[id number]
[2019-09-10] MEDS: ONDANSETRON HCL INJ 2MG/ML 2ML 2 MG/ML VIAL IV PRN ×2 (16:05→21:10)
[2019-09-11] VITALS: BP 107/73
[2019-09-11] MEDS: SODIUM CHLORIDE 0.9% 1000ML 1,000 ML IV SCH ×3 (00:42→16:42)
[2019-09-11] MEDS: HYDROMORPHONE 1MG/1ML INJ IV PRN ×3 (01:53→20:05)
[2019-09-11] MEDS: LEVOTHYROXINE SODIUM 100 MCG TAB PO SCH (05:56)
--- NOTE | 2019-09-11 07:10 | NUR ---
RECEIVED REPORT FROM TILTROTOR CREW CHIEF NURSE, PATIENT IS A&OX1, CONFUSED. AUTOMATIC LATHE OPERATOR IN PLACE. RT UPPER ARM IV 20G SALINE LOCKED, CALL LIGHT WITHIN REACH, BED IS LOW AND LOCKED, SIDE RAILS UPX2, ALARM BED ON.
--- NOTE | 2019-09-11 07:10 | NUR ---
RECEIVED REPORT FROM SCREEN MAKING SUPERVISOR NURSE, PATIENT AWAKE IN BED, NO DISTRESS NOTED, CALL LIGHT WITHIN REACH.
[2019-09-11 08:09] VITALS: BP 108/80
[2019-09-11] MEDS: DULOXETINE HCL 30 MG DELAYED RELEASE PO SCH (08:37)
[2019-09-11] MEDS: VALSARTAN 160 MG TAB PO SCH (08:38)
[2019-09-11 09:04] VITALS: BP 108/80
[2019-09-11] MEDS: LOPERAMIDE HCL 2 MG CAP PO PRN (10:36)
[2019-09-11 11:24] VITALS: BP 105/73
[2019-09-11 15:57] VITALS: BP 116/86
--- NOTE | 2019-09-11 17:14 | NUR ---
CM MET W THE PT AT THE BEDSIDE TO DISCUSS CHOICE FOR HOME O2. PT OK W AGENCY IN NETWORK. CHOICE LETTER WAS SIGNED AND COPY TO PT AND COPY TO CHART. REFERRAL WAS FAXED TO [facility] @ OFF: [phone] / FAX: [phone]. JACOBO POLANCO WAS NOTIFIED. CONFIRMED HE WILL DELIVER. INFORMED CANDIS, BEDSIDE NURSE.
--- NOTE | 2019-09-11 17:18 | Progress Note ---
DATE: 09/11/2019 SUBJECTIVE: Chico Mir is a 59-year-old male, who was referred to me for evaluation of massive liver metastases for detailed consult, please review my dictation. The patient's chemistry had shown the CEA to be 17.7 suggestive of an epithelial tumor because of multiple lesions in the lung and liver and hypercalcemia and hyponatremia. Clinically, this was lung cancer until proven otherwise. However, the biopsy of the liver shows the patient to have cholangiocarcinoma. It is academic interest if the patient has a 2nd primary also, which would be lung cancer, the prognosis depends on the cholangiocarcinoma. Since multicentric with the CAT scan of the abdomen and pelvis showing multiple lesions, the largest being 3.3 cm, but also a heterogeneous mass 7 x 6.8 cm within the upper abdomen encasing the celiac axis and SMA abutting the pancreatic body. The treatment is extremely poor basically with mitomycin-C and Xeloda. No complete remissions can be achieved. The patient's performance status is very poor with multiple comorbidities. I have suggested hospice. Thank you very much for allowing me to participate in the management of this patient. Mohsen Murphy MD MAQ/MODL /[id number] cc: Jorge England MD
--- NOTE | 2019-09-11 17:23 | Consultation ---
DATE OF CONSULTATION: 09/04/2019 HISTORY OF PRESENT ILLNESS: Clarke Golden is a 59-year-old male referred to me for evaluation of "cancer." The patient is obtunded. The patient was found to have hypercalcemia of 16.7. After he woke up, history obtained reveals that the patient has been a chronic smoker. SOCIAL HISTORY: History of smoking. FAMILY HISTORY: Brother has testicular cancer. The [id number] has breast cancer. ALLERGIES: NONE. MEDICATIONS: At this time. 1. Sodium chloride. 2. Ondansetron. 3. Synthroid. 4. Duloxetine. 5. Tylenol. REVIEW OF SYSTEMS: HEENT: Normal. CARDIAC: Normal. RESPIRATORY: Normal. GI: Liver metastases. : Normal. MUSCULOSKELETAL: Normal. SKIN AND BREASTS: Normal. NEUROENDOCRINE: History of hypothyroidism. PHYSICAL EXAMINATION: GENERAL: A moderately built male, obtunded at the time of examination. No adenopathy. HEART: Within normal limits. LUNGS: Clear. ABDOMEN: Soft. RECTAL: Deferred. CENTRAL NERVOUS SYSTEM: Could not be examined. LABORATORY DATA: The patient's sodium was 137, potassium 3.6, chloride 72, CO2 24, BUN 53, creatinine 1.74, glucose 107, hemoglobin of 13.6, hematocrit 38.4, white count 14777, platelets of 549,000, calcium 16.7. The patient had a CAT scan of the chest, abdomen and pelvis. The patient has a paramediastinal mass, 1.8 cm, right upper lobe mass, 1.9 x 3 cm. Left medial lobe mass 1.9 x 2 cm, massive liver metastases, a retroperitoneal mass 6.9 x 6.7 cm and right 2nd rib metastases. IMPRESSION: 1. Hypercalcemia of 16.7. 2. Anemia of chronic disease. 3. Hyponatremia of 133. 4. Chronic renal failure, BUN 72, creatinine 2.46. 5. Hypoalbuminemia of 2.8. 6. 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 7. Thyroid nodule 1.5 cm. 8. Atherosclerotic calcifications of the thoracic aorta. 9. Left hilar node 1.4 cm. 10. Paramediastinal mass 1.8 cm. 11. Right upper lobe mass 1.9 x 3 cm. 12. Left medial lobe mass 1.9 x 2 cm. 13. Liver metastases. 14. Retroperitoneal mass 6.9 x 6.7 cm abutting the tail of the pancreas. 15. Right 2nd rib metastases. PLAN, COMMENTS AND SUGGESTIONS: Suggest liver biopsy, suggest CEA, suggest quantitation of immunoglobulins. Suggest Aredia for hypercalcemia. The patient's calcium became normal less than 9. Liver biopsy was done, this was reported as cholangiocarcinoma. Because of poor performance status on 15 had different comorbidities, I suggest hospice and this patient is nonsalvageable. Thank you very much for allowing me to participate in management of this patient. I had a very clear discussion with the patient. MD CAMILLA Hemphill/CHEN /[id number]
--- NOTE | 2019-09-11 19:50 | NUR ---
EDUCATED PATIENT ON D/C INSTRUCTIONS, PT TO F/U WITH DR. Wanda BRYAN AND DR. ENAMORADO IN 1-2 WEEKS, PATIENT TO CALL DR. Wanda BRYAN'S OFFICE TOMORROW 09/12/2019 TO SET UP APPOINTMENT. PT'S TRANSFER HOME O2 DISCHARGE AT BEDSIDE. PATIENT VERBALIZED UNDERSTANDING. NO DISTRESS NOTED. HR ADMINISTRATOR REMOVED.
[2019-09-11 20:05] VITALS: BP 98/72
--- NOTE | 2019-10-11 03:56 | Discharge Summary ---
. FINAL DIAGNOSES: 1. Pancreatic CA with METs. 2. Coronary artery disease. 3. Hypertension. DISPOSITION: Home with O2. Home health. HOSPITAL COURSE: 59-year-old male with known history of hypertension, chronic pain syndrome, and major depressive disorder, brought to the ER with a several week history of frequent vomiting and watery stools. He has lost approximately 40 pounds in the past month. He has also been having issues with shortness of breath. No fever. Has had cough with no production of sputum. . Underwent review and evaluation in the emergency room with the conclusion of study and evaluation. The patient was admitted to facility for evaluation of significant weight loss, frequent vomiting, watery stools, hypertension, hypocalcemia, alcoholism, smoker. We will admit the patient and start on IV normal saline. We will be checking PTH. We will obtain a CT scan of chest, requested GI followup. CONSULTANTS: Dr. Eric England, GI, regarding the upper abdominal pain, nausea, and vomiting. With his review and evaluation of the patient, his conclusions were recurrent nausea and vomiting, approximately 40 pounds weight loss over the last several weeks. The patient was scheduled for EGD. Additional consultants: Dr. Murphy Hematology/Oncology for evaluation of cancer. The patient is being obtunded, noted to have a hypercalcemia at 60.7. Following his review of the patient, his impression was hypercalcemia with a calcium of 16.7, anemia with chronic disease, hyponatremia, chronic renal failure, hypoalbuminemia, hyperglobulinemia, thyroid nodule, atherosclerotic calcifications, thoracic aorta, left hilar node, paramediastinal mass, right upper lobe mass, left medial lobe mass, liver metastasis, retroperitoneal mass 6.9 x 6.7 cm abutting the tail of the pancreas, right 2nd rib metastasis. Suggestions: Liver biopsy, CEA level, suggest quantitation of immunoglobulin. Suggest Aredia for hypercalcemia. The patient's calcium improved became normal less than 9. Liver biopsy was performed. Studies were reported as cholangiocarcinoma. He states that because of poor performance status on 15 at different comorbidities. Suggest hospice. The patient is non-salvageable. PROCEDURES: EGD by Dr. Eric England, 09/02/2019. Indication: Upper abdominal pain, nausea, and vomiting. Following the administration of preop medications, the patient underwent the EGD. Procedure was performed. Findings were showing ulcerated distal esophagus, 3 cm hiatal hernia, approximately 1.5 cm ulcer, hiatal hernia sac, biopsied and gastritis biopsied approximately 1 cm ulcer, antrum. Posterior wall without active bleeding, stigmata of recent hemorrhage. Several duodenal ulcers with largest approximately 8 mm in the duodenal bulb at the proximal 2nd portion. No active bleeding or stigmata of recent hemorrhage were noted. The patient will continue PPI therapy, will be initiated full liquid. The patient returned to recovery room in good condition. Other procedures; ultrasound-guided liver mass biopsy to the care of Interventional Radiology. Specimens were sent to the pathology. The patient was on the Med-Surg floor, noted to be alert and responsive. He is complaining of nausea. No new complaints other than the nausea. His followup calcium was trending down. Medications were continued. Vital signs were monitored further. Laboratory studies were being reviewed reportedly. The patient also was having issues with being lethargic. Anesthesia effect from the EGD. He is undergoing further diagnostic evaluations i.e. imaging. Reviewed by Dr. Murphy. He is having no appetite, even though he was scheduled to receive a GI soft diet. Medications for pain will be given as well as his other daily medication. CT scan was worrisome for findings of CA of the pancreas. Continued to be assisted with Dr. Murphy. He is being made as comfortable as possible. Further calciums returned to normal limits. The patient was also noted to be running an elevated white count. The liver biopsy studies returned, showing evidence of cholangiocarcinoma. Arrangements were being made to be discharged the patient home. Election was made for home health. The patient will also be set up for supplemental O2 directed through Case Management. IVs were discontinued. Instructed to call my office tomorrow to set up an appointment. Instructed also to follow up with Dr. Murphy in his office within 1-2 weeks. IMAGING: Acute abdomen series finding shows pulmonary interstitial edema. Bilateral focal patchy airspace opacities, left greater than right, may represent superimposed infection. CT chest shows findings concerning for metastatic disease including innumerable pulmonary nodules, partially visualized hepatic lesion, left hilar lymphadenopathy, extensive partially visualized retroperitoneal lymphadenopathy and destructive osseous lesion within the right 2nd rib. Trace right and small left pleural effusion, trace ascites. Abdomen and pelvis CT, findings were worrisome for pancreatic malignancy with large heterogeneous mass within the upper abdomen abutting likely arising from the pancreatic body with encasement of the celiac artery and SMA. There is evidence of metastatic disease with multiple hepatic masses, mesenteric and retroperitoneal lymphadenopathy or omental nodularity. Small volume of ascites as well as pulmonary nodules as noted on the prior CT chest. Likely pathologic compression deformities noted in the lumbar spine. A liver biopsy was performed. Brain MRI shows a slight limitation no intracranial metastasis. Mild chronic microvascular ischemic change. LABORATORY STUDIES: Begins with a CBC showing white cell count elevated at 12,100, H and H 13.6, and hematocrit 32.8. Followup CBC shows white blood cell count remaining elevated, final study 15,900, H and H values fell to a final study 11.1 and 34.5, and platelets were at 299. C diff was negative. Urinalysis 2+ protein, 1+ bilirubin, moderate amount of bacteria. Urine drug screen was positive for opiates, positive for benzodiazepine. Chemistry panel during the stay, initial study, sodium 133, potassium is normal. Kidney functions; BUN 72, creatinine 2.46, glucose normal, and calcium 16.7. Initial liver panel, total bilirubin 0.7, AST 40, ALT 57, alkaline phosphatase 347, albumin 2.8, globulin 4.4. BNP was 147.7. Followup chemistries reveals the calcium studies were declining. Final study was 6.7. Followup sodiums were normal. Potassium fell to 3.2, final study 3.9, BUN and creatinine were followed as well, final study 25 and 1.08 respectively. Final liver studies; total bilirubin 0.3, AST 23, ALT 39, alk phos 293. Total protein was now low at 5.9, albumin 2.1, globulin 3.8. CEA level was 17.7. As mentioned, the patient reached potential recovery and set to be discharged home with home health with orders to follow up with me and Dr. Murphy within 1-2 weeks. Follow up in my office the day after discharge, set up an appointment. Continue on diet as tolerated. No drains or Santiago needed. Activity level as tolerated. CURRENT MEDICATIONS: The patient will be on aspirin 81 mg daily, clopidogrel 75 mg daily, Cymbalta 30 mg daily, hydrocodone/acetaminophen 7.5 mg p.o. 3-4 times daily as needed, levothyroxine sodium 100 mcg daily, and Diovan 160 mg p.o. daily. The patient will be calling my office if the patient's condition worsens or has noncontrolled pain management. Dictated by NÉSTOR Rogers MD [facility]/CHEN /[id number]
== END 2019-09-11 20:50 | disposition home or self-care (01) | DRG 436 ==
LOC: ER 15:16 → ERHOLD 16:45 → MED/SURG3 18:37
PROC: 0DB98ZX Excision of Duodenum, Via Natural or Artificial Opening Endoscopic, Diagnostic (ICD-10-PCS; 2019-09-02)
PROC: 0DB78ZX Excision of Stomach, Pylorus, Via Natural or Artificial Opening Endoscopic, Diagnostic (ICD-10-PCS; 2019-09-02)
PROC: 0FB13ZX Excision of Right Lobe Liver, Percutaneous Approach, Diagnostic (ICD-10-PCS; principal; 2019-09-06)
DX: C22.1 Intrahepatic bile duct carcinoma (principal); C78.00 Secondary malignant neoplasm of unspecified lung; K22.10 Ulcer of esophagus without bleeding; E44.0 Moderate protein-calorie malnutrition; N17.9 Acute kidney failure, unspecified; I25.10 Atherosclerotic heart disease of native coronary artery without angina pectoris; F32.9 Major depressive disorder, single episode, unspecified; R13.10 Dysphagia, unspecified; G89.29 Other chronic pain; E83.52 Hypercalcemia; K44.9 Diaphragmatic hernia without obstruction or gangrene; F17.200 Nicotine dependence, unspecified, uncomplicated; D63.8 Anemia in other chronic diseases classified elsewhere; E88.09 Other disorders of plasma-protein metabolism, not elsewhere classified; I70.0 Atherosclerosis of aorta; Z68.27 Body mass index [BMI] 27.0-27.9, adult; I12.9 Hypertensive chronic kidney disease with stage 1 through stage 4 chronic kidney disease, or unspecified chronic kidney disease; N18.3 Chronic kidney disease, stage 3 (moderate)
CPT/HCPCS: 36415; 43239; 47000; 70553; 71260; 74022; 74177; 74470; 76942; 80048; 80053; 80307; 81001; 82310; 82378; 82784; 83735; 83880; 83970; 84100; 84152; 84443; 84484; 85025; 85610; 85730; 86850; 86900; 87493; 88305; 88307; 88312; 88313; 88342; 96361; 97139; 99152; 99153; 99284; J1170; J1940; J2250; J2310; J2405; J2430; J3010; J3411; J3480; J7030; Q9967

== ENCOUNTER 2019-09-16 20:19 | Emergency (ER) | payer BC ==
[~2019-09-16] VITALS: Ht 160 cm; Wt 68.9 kg
[~2019-09-16 20:19] MED LIST changes: +CLOPIDOGREL75 MG PO
--- NOTE | 2019-09-16 21:15 | NUR ---
COAL FEEDER OPERATOR NOTIFED TO CALL OUT VENOUS DOPPLER PER MD ORDERS.
[2019-09-16 21:24] LABS: BASOPHILS # (AUTO) 0.1 (0.0-0.1); BASOPHILS % 0.2 % (0.0-1.0); HEMATOCRIT 30.8 % (38.2-49.6); HEMOGLOBIN 10.7 g/dL (14.0-18.0); LYMPHOCYTES # (AUTO) 1.6 (1.0-3.2); LYMPHOCYTES % 4.9 % (18.0-39.1); MEAN CORPUSCULAR HEMOGLOBIN 33.3 pg (28-32); MEAN CORPUSCULAR HGB CONC 34.7 g/dL (31-35); MONOCYTES # (AUTO) 2.4 (0.2-0.8); MONOCYTES % 7.6 % (4.4-11.3); NEUTROPHILS # (AUTO) 26.8 (2.1-6.9); NEUTROPHILS % 85.3 % (38.7-80.0); PLATELET COUNT 362 x10e3/uL (140-360); RED BLOOD COUNT 3.21 x10e6/uL (4.3-5.7); RED CELL DISTRIBUTION WIDTH 14.5 % (11.7-14.4)
[2019-09-16 21:42] LABS: ALBUMIN 2.1 g/dL (3.5-5.0); ALBUMIN/GLOBULIN RATIO 0.5 (0.8-2.0); ANION GAP 18.5 mmol/L (8-16); CALCIUM 7.5 mg/dL (8.4-10.2); CREATININE, SERUM 2.43 mg/dL (0.72-1.25); POTASSIUM 4.5 mmol/L (3.5-5.1)
--- NOTE | 2019-09-16 21:55 | Diagnostic Imaging Report ---
EXAMINATION: CHEST 2 VIEWS INDICATION: Congestive heart failure COMPARISON: Chest CT 09/04/2019 FINDINGS: TUBES and LINES: None. LUNGS/PLEURA: Persistent coarse and nodular opacities throughout the mid to lower lungs. Persistent small bilateral pleural effusions, left greater than right. Lung volumes within normal limits. HEART AND MEDIASTINUM: The cardiomediastinal silhouette is unremarkable. Aortic calcifications. Small gastric hiatal hernia. BONES AND SOFT TISSUES: Destructive expansile right rib 2 metastasis. Unchanged moderate anterior wedge fracture of L1 vertebral body. Healed bilateral rib fractures. UPPER ABDOMEN: No free air under the diaphragm. IMPRESSION: Persistent extensive nodular and coarse pulmonary opacities, similar compared to chest CT of 09/04/2019, compatible with extensive pulmonary metastatic disease, although superimposed infection or interstitial edema is possible. There is also a right rib 2 osseous metastasis. Persistent small bilateral pleural effusions, left greater than right. Signed by: John Mccartney DO on 09/16/2019 9:51 PM
[2019-09-16 22:25] LABS: LYMPHOCYTES % (MANUAL) 5 % (19-48); MONOCYTES % (MANUAL) 4 % (3.4-9.0); NEUTROPHILS % (MANUAL) 90 % (40-74); NUCLEATED RED BLOOD CELLS 1; PLATELET ESTIMATE ADEQUATE; PLATELET MORPHOLOGY COMMENT FEW LARGE; RBC MORPHOLOGY COMMENT NORMAL
--- NOTE | 2019-09-17 | NUR ---
PATIENT BROUGHT BACK TO SPEAK WITH ED MD, UPDATED ON POC AND DISPO, PATIENT DOES NOT WANT ADMISSION, STATES CAN F/U WITH RANDI IN OFFICE, ED MD CALLED PCP AND OKAY PER PCP AT THIS TIME,
[2019-09-17 00:34] VITALS: BP 92/72
== END 2019-09-17 00:22 | disposition home or self-care (01) ==
LOC: ER 20:19
DX: R60.0 Localized edema (principal); I70.8 Atherosclerosis of other arteries; M79.89 Other specified soft tissue disorders; D72.829 Elevated white blood cell count, unspecified
CPT/HCPCS: 36415; 71046; 80053; 83880; 85025; 93925; 93970; 99283

== ENCOUNTER 2019-09-19 11:36 | Inpatient (IN) | payer BC, OTHER ==
[2019-09-19] VITALS (10 sets, daily range): BP systolic 87–114; BP diastolic 61–80
[~2019-09-19] VITALS: Ht 160 cm; Wt 68.9 kg
[2019-09-19] MEDS ORDERED: SODIUM CHLORIDE 0.9% 1000ML 1,000 ML IV STA (11:54)
[2019-09-19] MEDS ORDERED: MIDAZOLAM HCL 25 MG in SODIUM CHLORIDE 0.9% 45 ML IV PRN (13:00)
[2019-09-19] MEDS ORDERED: SODIUM CHLORIDE 0.9% 1000ML 1,000 ML ONE (13:17)
[2019-09-19 13:39] LABS: BASOPHILS # (AUTO) 0.1 (0.0-0.1); BASOPHILS % 0.3 % (0.0-1.0); EOSINOPHILS # (AUTO) 0.1 (0.0-0.4); EOSINOPHILS % 0.4 % (0.0-6.0); HEMATOCRIT 32.5 % (38.2-49.6); LYMPHOCYTES # (AUTO) 1.2 (1.0-3.2); LYMPHOCYTES % 5.5 % (18.0-39.1); MEAN CORPUSCULAR HEMOGLOBIN 32.6 pg (28-32); MEAN CORPUSCULAR HGB CONC 33.8 g/dL (31-35); MEAN CORPUSCULAR VOLUME 96.4 fL (81-99); MONOCYTES # (AUTO) 1.7 (0.2-0.8); MONOCYTES % 7.9 % (4.4-11.3); NEUTROPHILS # (AUTO) 18.2 (2.1-6.9); NEUTROPHILS % 84.9 % (38.7-80.0); PLATELET COUNT 360 x10e3/uL (140-360); RED BLOOD COUNT 3.37 x10e6/uL (4.3-5.7); RED CELL DISTRIBUTION WIDTH 14.6 % (11.7-14.4)
[2019-09-19] MEDS ORDERED: CEFEPIME HCL 1 GM VIAL IV SCH (14:00)
[2019-09-19 14:03] LABS: ALBUMIN/GLOBULIN RATIO 0.4 (0.8-2.0); ANION GAP 17.9 mmol/L (8-16); CALCIUM 8.2 mg/dL (8.4-10.2); CREATININE, SERUM 2.88 mg/dL (0.72-1.25); POTASSIUM 3.9 mmol/L (3.5-5.1)
[2019-09-19 14:08] LABS: CREATINE KINASE MB 6.7 ng/mL (0-5.0)
--- NOTE | 2019-09-19 14:08 | Diagnostic Imaging Report ---
EXAM: CHEST SINGLE (PORTABLE) DATE: 09/19/2019 1:04 PM INDICATION: Status post intubation COMPARISON: 09/16/2019 FINDINGS: Endotracheal tube identified with tip terminating approximately 3.3 cm above the alberto. Left IJ central venous catheter identified with tip terminating at the junction of the left brachiocephalic vein and SVC. Enteric tube noted coursing below the diaphragm. There is stable small left and trace right pleural effusion present. Again identified are grossly stable appearing interstitial and reticulonodular opacities bilaterally. There is no evidence for pneumothorax. The cardiomediastinal silhouette is stable in appearance. Right second rib osseous lesion better evaluated on prior CT examination. No acute osseous abnormalities identified. IMPRESSION: Support devices identified in appropriate position. Stable small left and trace right pleural effusions. Stable bilateral interstitial and reticulonodular opacities which likely reflect known pulmonary metastatic disease. A superimposed infectious process or edema would be difficult to exclude. Signed by: Dr. Enmanuel Benton MD on 09/19/2019 2:04 PM
[2019-09-19] MEDS ORDERED: HYDROCODONE/APAP 7.5MG-325MG 1 EA TAB PO PRN (14:45)
[2019-09-19] MEDS ORDERED: SODIUM CHLORIDE 0.9% 1000ML 1,000 ML IV SCH ×2 (14:45→15:15)
[2019-09-19] MEDS ORDERED: VANCOMYCIN 1GM/NS 250 ML 250 ML IV ONE (15:00)
[2019-09-19 15:12] LABS: CLARITY,URINE SL CLOUDY (CLEAR); COLOR,URINE YELLOW (YELLOW); LEUKOCYTE ESTERASE ,URINE NEGATIVE (NEGATIVE); NITRITE,URINE NEGATIVE (NEGATIVE); PROTEIN,URINE DIPSTICK 1+ (NEGATIVE)
[2019-09-19 15:13] LABS: BILIRUBIN,URINE NEGATIVE (NEGATIVE); KETONES,URINE NEGATIVE (NEGATIVE); URINE UROBILINOGEN 0.2 mg/dL (0.2 - 1)
[2019-09-19] MEDS: CEFEPIME 1GM/NS 0.9% 50 ML 50 ML IV SCH ×2 (15:13→21:45)
[2019-09-19 15:27] LABS: BACTERIA,URINE MODERATE /HPF; EPITHELIAL CELLS,URINE RARE /LPF
--- NOTE | 2019-09-19 15:41 | NUR ---
spoke with elisa (id [id number]) from adult protective services; explained pt presentation of wounds to bilateral feet and coband wrapped around pt right arm after d/c from here a few days ago right hand swollen and pt family member that dropped pt off stating pt is living with the family member's ex ; reference # [phone]
--- NOTE | 2019-09-19 15:54 | Consultation ---
DATE OF CONSULTATION: Pulmonary Critical Care Consultation CHIEF COMPLAINT: Leukocytosis, foot wound and respiratory failure. HISTORY OF PRESENT ILLNESS: The patient is a 59-year-old man. He was recently admitted to [facility] with hypercalcemia and malignancy of the pancreas in upper abdomen with encasement of the celiac artery. Subsequent biopsy showed cholangiocarcinoma. The patient also had a metastasis in the lumbar spine. The patient was seen by Oncology. The oncologist felt that the prognosis was poor and limited options were available. Hospice was recommended. The patient received intravenous fluids as well as treatment for the hypercalcemia. The patient was discharged home. The patient also has a chronic wound on his foot and apparently was hurting him more today. He had difficulty his sock from the ulceration on the dorsum of his foot. He also had increased pain and fever. When he came to the emergency department, he was found to be in respiratory distress. He required intubation. He was given antibiotics and fluids for possible sepsis. PAST SURGICAL HISTORY: 1. Status post debridement of the left foot. 2. Status post liver biopsy. PAST MEDICAL HISTORY: 1. Metastatic cholangiocarcinoma. 2. Hypercalcemia secondary to malignancy. 3. Peripheral vascular disease. ALLERGIES: THE PATIENT HAS NO KNOWN DRUG ALLERGIES. FAMILY HISTORY: Family history is noncontributory. SOCIAL HISTORY: The patient is not an active drinker or smoker. REVIEW OF SYSTEMS: There is no history of fevers. The patient did not have headache. He had tachypnea and respiratory distress. He also had possible chest discomfort. He had no abdominal pain. There is no nausea or vomiting. He had pain and ulceration on the dorsum of his left foot. PHYSICAL EXAMINATION: VITAL SIGNS: The patient is afebrile now. The blood pressure is 100/60 and the pulse is 116. The patient is currently intubated. He is on an AC mode of ventilation at a rate of 14. His FiO2 is set at 100%. His tidal volume is 500. HEENT: Shows no facial swelling or erythema. CARDIAC: Reveals regular rate and rhythm with normal S1, S2. LUNGS: Auscultation of lungs shows decreased breath sounds at the bases. There is no wheezing. ABDOMEN: Soft. There is some tenderness. There is no rebound. EXTREMITIES: Shows an ulceration on the dorsum of the left foot. There is a yellowish eschar. RADIOGRAPHIC DATA: Chest x-ray shows bilateral interstitial reticular nodular opacities suggestive of metastatic disease. LABORATORY DATA: White blood cell count is 21.5 with a hemoglobin of 11. The platelet count is 360. The BUN to creatinine ratio is 64 to 2.88, and the lactic acid is 6.5. Today, carbon dioxide is 10 with an elevated anion gap of 18. IMPRESSION: 1. Acute respiratory failure. 2. Sepsis secondary to cellulitis and foot wound present on admission. 3. Metastatic cholangiocarcinoma. 4. Acute kidney injury. 5. Metabolic acidosis. PLAN: 1. The patient will receive broad-spectrum antibiotics and IV fluid boluses consistent with the sepsis protocol. 2. Continue to monitor creatinine and electrolytes. 3. Await culture results. 4. Wound care. 5. The prognosis is very poor because of his metastatic cholangiocarcinoma. 6. Discuss hospice and palliative care with family attending in Oncology. Matthew Santiago MD LM/MODL /[id number]
[2019-09-19 16:28] LABS: ABG HCO3 11 mmol/L (22-26); ABG PCO2 38 mmHg (35-45)
--- NOTE | 2019-09-19 16:58 | NUR ---
Patient arrived from the ER via stretcher, has EJ # 20 IV acces to right side of neck, SL, has # 18 to right antecubital with versed infusing at 8mls/hr,. Vancomycin 1 gram infusing via the central line to left neck. Santiago to gravity, draining clear light tommy urine. He is mechanically ventilated, and obtunded. Patient assessed, skin appears to be mottled to lower extremities. Bilateral lower extremities left foot to with wound draining, delayed capillary refill. Belongins and call light within reach will continue to monitor, and will place call to attending to make aware of status.
--- NOTE | 2019-09-19 17:15 | NUR ---
Placed call to Dr. Elma England cell made him aware patient is obtunded, and what appears to be mottling of the skin, and lower extremities. Provided to Dr. England, patient's brother phone number to discuss with him DNR, since patient came to unit as a full code. Dr. England will call patient. Addendum: 09/19/19 at 1957 by Teodora Ward RN Dr. England will call patient's brother to discuss DNR, Dr. England will call us back after he speaks with patient's sibling.
--- NOTE | 2019-09-19 17:25 | NUR ---
Dr. England called back informed spoke with nurse Ninoska RN and charge nurse Asha to call patient's brother and obtain consent for DNR.
--- NOTE | 2019-09-19 17:30 | NUR ---
Nurse Ninoska and charge nurse Asha called patient's brother and brother agreed to make patient, a DNR.
[2019-09-19] MEDS ORDERED: SUCCINYLCHOLINE CHLORIDE 20 MG/ML 10ML VIAL ONE ×2 (17:39)
[2019-09-19] MEDS ORDERED: MIDAZOLAM HCL 2 MG/2 ML VIAL ONE ×2 (17:39)
[2019-09-19] MEDS ORDERED: ETOMIDATE 2 MG/ML 10 ML INJ IV ONE ×2 (17:39)
--- NOTE | 2019-09-19 19:45 | NUR ---
COVID RESULTED RETURNED "NOT DETECTED" - REPORTED TO DR HERMAN, ORDERS RECEIVED TO DC ISOLATION
[2019-09-19] MEDS: SODIUM CHLORIDE 0.45% 1,000 ML IV SCH (20:00)
[2019-09-19] MEDS ORDERED: SODIUM CHLORIDE 0.45% 1,000 ML ONE (20:11)
[2019-09-19 21:31] LABS: ANISOCYTOSIS SLIGHT; BAND NEUTROPHILS % (MANUAL) 1 %; LYMPHOCYTES % (MANUAL) 3 % (19-48); MONOCYTES % (MANUAL) 10 % (3.4-9.0); NEUTROPHILS % (MANUAL) 86 % (40-74); PLATELET ESTIMATE ADEQUATE; RBC MORPHOLOGY COMMENT NORMAL
[2019-09-19 21:32] LABS: PLATELET MORPHOLOGY COMMENT NORMAL
[2019-09-20] VITALS (11 sets, daily range): BP systolic 35–100; BP diastolic 27–71
[2019-09-20 05:00] LABS: BASOPHILS # (AUTO) 0.1 (0.0-0.1); BASOPHILS % 0.5 % (0.0-1.0); EOSINOPHILS # (AUTO) 0.1 (0.0-0.4); EOSINOPHILS % 0.6 % (0.0-6.0); HEMATOCRIT 28.9 % (38.2-49.6); HEMOGLOBIN 9.6 g/dL (14.0-18.0); LYMPHOCYTES # (AUTO) 0.7 (1.0-3.2); LYMPHOCYTES % 5.1 % (18.0-39.1); MEAN CORPUSCULAR HEMOGLOBIN 32.4 pg (28-32); MEAN CORPUSCULAR HGB CONC 33.2 g/dL (31-35); MEAN CORPUSCULAR VOLUME 97.6 fL (81-99); NEUTROPHILS # (AUTO) 12.5 (2.1-6.9); NEUTROPHILS % 85.8 % (38.7-80.0); PLATELET COUNT 308 x10e3/uL (140-360); RED BLOOD COUNT 2.96 x10e6/uL (4.3-5.7); RED CELL DISTRIBUTION WIDTH 14.7 % (11.7-14.4)
[2019-09-20 05:15] LABS: ALBUMIN 1.5 g/dL (3.5-5.0); ALBUMIN/GLOBULIN RATIO 0.4 (0.8-2.0); CALCIUM 7.3 mg/dL (8.4-10.2); CREATININE, SERUM 3.18 mg/dL (0.72-1.25)
[2019-09-20] MEDS: SODIUM CHLORIDE 0.45% 1,000 ML IV SCH (05:28)
[2019-09-20] MEDS: CEFEPIME 1GM/NS 0.9% 50 ML 50 ML IV SCH (05:28)
[2019-09-20] MEDS ORDERED: LEVOTHYROXINE SODIUM 100 MCG TAB PO SCH (06:00)
[2019-09-20 07:32] LABS: BAND NEUTROPHILS % (MANUAL) 4 %; LYMPHOCYTES % (MANUAL) 4 % (19-48); MONOCYTES % (MANUAL) 4 % (3.4-9.0); NEUTROPHILS % (MANUAL) 88 % (40-74); NUCLEATED RED BLOOD CELLS 1
[2019-09-20 07:33] LABS: ANISOCYTOSIS SLIGHT; PLATELET ESTIMATE ADEQUATE; PLATELET MORPHOLOGY COMMENT NORMAL; RBC MORPHOLOGY COMMENT NORMAL
[2019-09-20 07:34] LABS: POIKILOCYTOSIS SLIGHT
[2019-09-20 08:20] LABS: ABG PH 7.07 (7.35-7.45)
[2019-09-20 08:29] LABS: ABG BASE EXCESS -23.6 mmol/L (-2 - 3); ABG HCO3 9 mmol/L (21-29); ABG PCO2 44 mmHg (35-45); ABG PH 6.92 (7.35-7.45); ABG PO2 101 mmHg (80-90)
[2019-09-20 08:35] LABS: ABG OXYGEN SATURATION 92.4 % (96-97)
[2019-09-20] MEDS ORDERED: ASPIRIN 81 MG CHEW TAB PO SCH (09:00)
[2019-09-20] MEDS ORDERED: DULOXETINE HCL 30 MG DELAYED RELEASE PO SCH (09:00)
--- NOTE | 2019-09-20 09:09 | NUR ---
DR GAYLE ROUNDED. PT IS DNAR, CURRENTLY ON VENT, NON RESPONSIVE. BP AND HR ACTIVELY DECREASING. APS REP PHOEBE [phone] CALLED ASKING FOR UPDATE. WILL CONTINUE TO MONITOR.
--- NOTE | 2019-09-20 09:09 | NUR ---
CONSULT [id number]
--- NOTE | 2019-09-20 09:31 | Progress Note ---
DATE: SUBJECTIVE: The patient is now DNR after Dr. England's discussion with the brother. The patient remains on a pressure-regulated volume control. He is having problems with his blood pressure. His blood pressure is not improved despite receiving IV fluids. Apparently, the family does not want pressors. PHYSICAL EXAMINATION: VITAL SIGNS: The blood pressure is now 60/40 with a heart rate of 105. The patient is afebrile. He is on a PRVC at a rate of 18 with a tidal volume of 450 and a PEEP of 8. His FiO2 is set at 80%. HEENT: No facial swelling or erythema. CARDIAC: Reveals a regular rate and rhythm with normal S1 and S2. LUNGS: Auscultation of lungs reveals rhonchorous breath sounds bilaterally. There is no wheezing. ABDOMEN: Soft, nontender. There is no rebound or guarding. EXTREMITIES: No leg edema or calf tenderness. LABORATORY DATA: White blood cell count is 14.5 and hemoglobin is 9.6. The platelet count is 308. The BUN to creatinine ratio is 66 to 3.18. Other electrolytes are significant for a carbon dioxide of 10. The AST is 127 and the ALT is 131. IMPRESSION: 1. Acute respiratory failure. 2. Severe sepsis, secondary to cellulitis and foot wound present on admission. 3. Metastatic cholangiocarcinoma. 4. Acute kidney injury. 5. Metabolic acidosis. 6. Metabolic encephalopathy. PLAN: 1. Continue IV fluids and broad-spectrum antibiotics. 2. Adjust ventilator as tolerated. 3. Palliative Care has been consulted. 4. Consider possible hospice evaluation. 5. Wound care. 6. Case discussed with night patrol inspector nursing, dayshift nursing, Dr. England, and Respiratory. Greater than 35 minutes in direct critical care time. Matthew Santiago MD [facility]/MODL /[id number]
--- NOTE | 2019-09-20 09:39 | NUR ---
PT VS HAVE CEASED. NO HR OR BP. NOTIFIED.
--- NOTE | 2019-09-20 09:42 | NUR ---
FLAQUITA HARRIS PRONOUCED, TOClement @2726 PER EKG
--- NOTE | 2019-09-20 14:19 | NUR ---
PT PICKED UP BY [facility]
--- NOTE | 2019-09-20 17:58 | Consultation ---
DATE OF CONSULTATION: The patient was seen in early hours of the day. 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 The patient was recently in the hospital and had poor prognosis. The last time I saw him, I did recommend hospice and comfort care. The patient was discharged home. He is coming now with shortness of breath and not feeling well. The patient when he first came, he was in respiratory failure and had to be intubated. The patient had infection of his left foot, status post debridement, status post liver biopsy. PAST MEDICAL HISTORY: The patient has underlying history of recently-diagnosed metastatic cholangiocarcinoma, hypercalcemia, peripheral vascular disease. ALLERGIES: NKA. SOCIAL HISTORY: There is no smoking, drug abuse, or alcohol abuse. FAMILY HISTORY: Otherwise noncontributory. PHYSICAL EXAMINATION: GENERAL: He is lethargic. VITAL SIGNS: Very critical, temperature 99.5, heart rate 120 to 115, respirations 30. HEENT: Normocephalic. He looks cachectic. CHEST: Few rhonchi. HEART: S1 and S2. No S3, S4, or murmur. ABDOMEN: Soft. LABORATORY DATA: Reviewed and chart reviewed. IMPRESSION: Sepsis on admission. Prognosis is extremely poor. Agree with cefepime and agree with supportive care. Recommend the patient to be hospice. Discussed with medical team. MD EVELIA Sánchez/CHEN /[id number]
--- NOTE | 2019-10-11 05:41 | Discharge Summary ---
DATE OF EXPIRATION: 09/20/2019. CHIEF COMPLAINT: Widespread metastasis. FINAL DIAGNOSES: 1. Widespread metastasis. 2. Chronic back pain. 3. Gastroesophageal reflux disease. 4. Cholangiocarcinoma. HOSPITAL COURSE: A 59-year-old male, known history of chronic back pain, GERD, recently diagnosed with cholangiocarcinoma, and widespread metastasis, was in the process of being placed on hospice. However, the patient was brought by his brother to the ER due to swelling of legs and shortness of breath. It was noted that due to lack of DNR, the patient was intubated, running now on vent, unresponsive. Chest was showing inspiratory crackles. No added tachy rate. The patient was showing massive swelling, discoloration of both lower extremities. The patient was admitted to ICU regarding issues of cholangiocarcinoma with widespread metastasis, respiratory failure, unresponsiveness, admitted to the unit, will be addressing palliative care, will be requesting a Pulmonary followup. Care and plan will be discussed with the family. With admission regarding the ICU status on vent, Pulmonary was requested to follow due to issues with leukocytosis as well as the respiratory failure, was reviewed by Dr. Santiago. His assessment was acute respiratory failure, sepsis secondary to cellulitis of foot wound present on admission, metastatic cholangiocarcinoma, acute kidney injury, metabolic acidosis. The patient will be started on broad spectrum antibiotics and IV fluid boluses, consistent with the sepsis protocol. We will continue to monitor creatinine and electrolytes. Wound care will be initiated. Prognosis was noted to be very poor because of his metastatic cholangiocarcinoma. We will be discussing hospice and palliative care with the family along with attending and Oncology. Additional consult, Infectious Disease, Dr. Fitch. With his review, his impression was sepsis on admission. Prognosis is extremely poor. Agree with the cefepime. Agree with supportive care. Recommend the patient to be on hospice. From the ER, the patient was in ICU, was continued on vent support, was on cardiac diet. He was on cefepime and given IV fluids. Other dental medications were being given as well. He was made comfortable, possible. Noted to have leukocytosis along being edema and on 09/20/2019, the patient was pronounced by me at 0930 hour . IMAGING: Chest x-ray compared to his recent admission reveals support devices identified in appropriate position. Stable small left and trace right pleural effusion. Stable bilateral interstitial and reticulonodular opacities, which likely reflect known pulmonary metastatic disease. A superimposed infectious process or edema will be difficult to exclude. Cultures; throat negative. Blood cultures showing E coli, Streptococcus viridans. LABORATORY STUDIES: Begins with a CBC showing initial white cell count 21,400, H and H 11.0 and 32.5, platelets were normal. Followup CBC shows an improvement in white cell count of 14,500, H and H is at followup to 9.6 and 28.9. Influenza studies A and B were showing positive for . Urinalysis reveals a cloudy clarity, 1+ protein, moderate amount of bacteria. Initial chemistries were showing stable electrolytes. BUN is 64, creatinine 2.88, glucose 178, calcium 8.2. Liver studies, bilirubin 0.7, AST 40, ALT 133, alkaline phosphatase 464. Lactic acid was initially elevated at 6.5, repeated 2.3. Followup chemistries; sodium 146, potassium normal, BUN 66, creatinine 3.18, glucose 110, calcium 7.3, AST admission 127, ALT 131, alkaline phosphatase is 328. The patient's current condition was pronounced by me. Dictated by NÉSTOR Rogers Jorge England MD [facility]/MODL /[id number]
== END 2019-09-20 14:00 | disposition expired | DRG 871 ==
LOC: ER 11:36 → ERHOLD 13:51 → ICU 16:52
PROC: 5A1945Z Respiratory Ventilation, 24-96 Consecutive Hours (ICD-10-PCS; principal; 2019-09-19)
PROC: 0BH17EZ Insertion of Endotracheal Airway into Trachea, Via Natural or Artificial Opening (ICD-10-PCS; 2019-09-19)
DX: A41.9 Sepsis, unspecified organism (principal); J96.00 Acute respiratory failure, unspecified whether with hypoxia or hypercapnia; G93.41 Metabolic encephalopathy; C22.1 Intrahepatic bile duct carcinoma; N17.9 Acute kidney failure, unspecified; E87.2 Acidosis; L03.116 Cellulitis of left lower limb; C79.51 Secondary malignant neoplasm of bone; R65.20 Severe sepsis without septic shock; I73.9 Peripheral vascular disease, unspecified; Z66 Do not resuscitate
CPT/HCPCS: 31500; 36415; 36555; 36556; 36600; 51700; 71045; 80053; 81001; 82550; 82553; 82805; 83518; 83605; 84484; 85025; 87040; 87070; 87071; 87086; 87186; 87205; 87400; 87635; 92950; 93005; 94002; 94003; 99285; J0330; J0692; J2250; J3370; J7030